=== PATIENT | female | born 1980 | race Caucasian/White ===

== ENCOUNTER 2017-03-13 08:50 | Emergency (ER) | payer OTHER ==
[2017-03-13 09:10] VITALS: BMI 18.6
[2017-03-13] MEDS ORDERED: CLINDAMYCIN IVPB 300 MG in DEXTROSE 5%-WATER - 48 ML IVPB ONE (10:44)
[2017-03-13] MEDS ORDERED: CLINDAMYCIN PHOSPHATE 600 MG/4 ML VIAL ONE (10:59)
[2017-03-13 11:25] LABS: BASOPHIL 1.1 % (0-2.0); EOSINOPHIL 1.7 % (0-4.5); MCH 31.1 pg (25.7-33.7); MCHC 33.8 g/dl (32.0-36.0); NEUTROPHILS 56.4 % (42.8-82.8); PLATELET COUNT 249 K/MM3 (134-434); RDW 13.5 % (11.6-15.6); WHITE BLOOD COUNT 5.3 K/mm3 (4.0-10.0)
[2017-03-13] MEDS ORDERED: DIPHTH,PERTUSS(ACELL),TET 0.5 ML DISP.SYRIN IM ONE (11:29)
--- NOTE | 2017-03-13 11:42 | PDOC ---
History of Present Illness - General Chief Complaint: Wound Infection Stated Complaint: FALL/ RT FOOT INFECTION Time Seen by Provider: 03/13/17 10:24 History Source: Patient Exam Limitations: No Limitations - History of Present Illness Initial Comments: 03/13/17 11:28 36-year-old female presents the ED with complaints of right foot infection for the past 5 days. Patient states was in [place] when she walked and scraped against a piece of wood that caused her foot to be abraded. Patient states did not apply anything topically but they clean the area with soap and water and continue medication which included swimming [place] in [place]. Patient states since then the area has become more red and swollen despite placing bacitracin to the affected area. Patient denies medical history and states is unsure of her last tetanus. Timing/Duration: getting worse Severity: mild Associated Symptoms: reports: other Past History - Travel Traveled outside of the country in the last 30 days: Yes Close contact w/someone who was outside of country & ill: No - Past Medical History Allergies/Adverse Reactions: Allergies Allergy/AdvReac Type Severity Reaction Status Date / Time No Known Allergies Allergy Verified 03/13/17 09:10 Home Medications: Ambulatory Orders NK [No Known Home Medication] 03/13/17 - Reproductive History LMP Normal: Yes Is Patient Now?: No - Psycho/Social/Smoking Cessation Hx Suicidal Ideation: No Smoking History: Never smoked Information on smoking cessation initiated: No Patient Lives Alone: No Review of Systems - Review of Systems Able to Perform ROS?: Yes Constitutional: No: Symptoms Reported HEENTM: No: Symptoms Reported Respiratory: No: Symptoms reported Cardiac (ROS): No: Symptoms Reported ABD/GI: No: Nausea : No: Symptoms Reported Musculoskeletal: No: Joint Pain, Joint Swelling Integumentary: Yes: Erythema (with swelling surrounding the wound) *Physical Exam - Vital Signs Last Vital Signs Temp Pulse Resp BP Pulse Ox 98.2 F 65 18 117/69 100 03/13/17 09:06 03/13/17 09:06 03/13/17 09:06 03/13/17 09:06 03/13/17 09:06 - Physical Exam General Appearance: Yes: Nourished, Appropriately Dressed. No: Apparent Distress Neck: positive: Supple Respiratory/Chest: positive: Lungs Clear, Normal Breath Sounds. negative: Respiratory Distress, Accessory Muscle Use Cardiovascular: positive: Regular Rhythm, Regular Rate. negative: Murmur Extremity: positive: Normal Capillary Refill, Normal Range of Motion, Pedal Edema (1+ pitting surrounding 2 x 2 centimeter abraded wound to the dorsal aspect of right foot. No increased warmth no streaking no drainage.) Integumentary: positive: Erythema (4 x 4 centimeters to the dorsal aspect of right foot) Neurologic: positive: Normal Mood/Affect, Motor Strength 5/5 (ambulatory) ED Treatment Course - LABORATORY CBC & Chemistry Diagram: 03/13/17 11:12 03/13/17 11:12 - Medications Given in the ED: ED Medications Discontinued Medications Generic Name Dose Route Start Last Admin Trade Name Freq PRN Reason Stop Dose Admin Clindamycin Phosphate 300 mg/ 50 mls @ 100 mls/hr 03/13/17 10:44 03/13/17 11:23 Dextrose IVPB 03/13/17 11:13 100 mls/hr ONCE ONE Administration Medical Decision Making - Medical Decision Making 03/13/17 11:05 Patient here with nonhealing wound to the dorsal aspect of right foot concerning for cellulitis. Patient will also receive a tetanus and she is unsure of her last tetanus and will be given IV clindamycin. Patient also ordered for labs along with cultures. 03/13/17 12:38 Laboratory Tests 03/13/17 03/13/17 03/13/17 11:12 11:12 11:12 WBC 5.3 Hgb 13.6 Hct 40.1 Plt Count 249 Neutrophils % 56.4 Sodium 141 Potassium 3.9 Chloride 105 Carbon Dioxide 28 Anion Gap 8 BUN 11 Creatinine 0.7 Random Glucose 99 Lactic Acid 0.662 AST 14 L ALT 23 Alkaline Phosphatase 125 H Total Protein 7.8 Albumin 4.2 Patient will be discharged home with clindamycin. Cultures were sent. Recommendations to keep open to air applying bacitracin only. *DC/Admit/Observation/Transfer Diagnosis at time of Disposition: Cellulitis of foot, right - Discharge Dispostion Disposition: HOME Condition at time of disposition: Good - Referrals Referrals: Nitin Gross MD [Primary Care Provider] - - Patient Instructions Printed Discharge Instructions: DI for Wound Infection, DI for Cellulitis -- Adult Additional Instructions: Please take antibiotics as prescribed until completed. Please apply bacitracin only but leaving area open to dry and open to air. May take Motrin or Tylenol for discomfort and return to ED if symptoms worsen.
[2017-03-13 12:03] LABS: ALBUMIN 4.2 g/dl (3.4-5.0); ANION GAP 8 (8-16); BILIRUBIN,TOTAL 0.7 mg/dL (0.2-1.0); CALCIUM 9.1 mg/dL (8.5-10.1); CO2 28 mmol/L (21-32); CREATININE 0.7 mg/dL (0.55-1.02); GLUCOSE,RANDOM 99 mg/dL (74-106); SGOT/AST 14 U/L (15-37); SGPT/ALT 23 U/L (12-78); TOT PROT 7.8 g/dl (6.4-8.2)
[2017-03-13 12:04] LABS: ALK PHOS 125 U/L (45-117)
[2017-03-13 13:06] VITALS: BP 107/74; PULSE 61; TEMP 97.9
== END 2017-03-13 13:06 | disposition home or self-care (01) ==
LOC: JER 08:50 → EDBD 08:50 → JER 13:06
PROC: 3E0234Z Introduction of Serum, Toxoid and Vaccine into Muscle, Percutaneous Approach (ICD-10-PCS; principal; 2017-03-13)
PROC: 3E03329 Introduction of Other Anti-infective into Peripheral Vein, Percutaneous Approach (ICD-10-PCS; 2017-03-13)
DX: S90.811A Abrasion, right foot, initial encounter (principal); L03.115 Cellulitis of right lower limb; W22.8XXA Striking against or struck by other objects, initial encounter; Y93.89 Activity, other specified; Y92.89 Other specified places as the place of occurrence of the external cause
CPT/HCPCS: 36415; 80053; 83605; 85025; 87040; 87070; 87205; 90715; 96365; 96372; 99282-25